=== PATIENT | female | born 1935 | race Caucasian/White ===

== ENCOUNTER → 2019-11-01 | Outpatient (CLI) | payer MEDICARE, OTHER ==
[~2019-11-01] MED LIST: ACETAMIN; ALBU3IS INH; ALBU8HFA2 INH; ALBU90OI INH; AMIO200 PO; AMLO5 PO; ATEN25 PO; AZIT250 PO; Antivert25 MG PO; BREO ELLIPTA 11 EACH INH; CALTRATE; CEFU50SU PO; CHOL10002 PO; DIGO.125 PO; FERR325 PO; FLUSAL5005 IH; FLUTICASONE P15.8 ML; FURO40 PO; FURO80 PO; GABA300 PO; LEVSOD75; LEVSOD75 PO; LEVSOD88 PO; MECL25 PO; METO100ER PO; METO50ER PO; OXYACE5T; OXYACE5T PO; OXYB5ER PO; OXYC10ER PO; OXYC80ER PO; OXYCODONE; OXYM.05NI; PANT40; PANT40 PO; PARO20; PARO20 PO; POTA10T PO; PRAM.5 PO; PRED10 PO; PREMROSE OIL; SIMV20 PO; SIMV40; SIMV40 PO; TRAZ100; VENL150ER PO; VERA240ER; WARF2 PO; WARF3 PO; WARF4 PO; XARELTO; [UNRECOGNIZED DRUG - OTHER]
[2019-11-01 16:32] LABS: Source, Urine Clean Catch
[2019-11-01 18:35] LABS: Blood, Urine Neg (Neg); Glucose Qualitative, Urine Neg (Neg); Ketones, Urine Neg (Neg); Leukocyte Esterase, Urine Neg (Neg); Nitrite, Urine Pos (Neg); Protein, Urine Neg (Neg); Urobilinogen, Urine 2+ (Normal)
[2019-11-01 18:56] LABS: Bilirubin, Urine 2+ (Neg)
[2019-11-01 19:10] LABS: Appearance, Urine Clear (Clear); Color, Urine Orange (P-Yellow)
[2019-11-01 19:12] LABS: Bacteria Few /hpf; Red Blood Cells, Urine Not Seen /hpf (0-2); Squamous Epithelial Cells Rare /hpf (Few); White Blood Cells, Urine Rare /hpf (0-5)
== END | disposition home or self-care (01) ==
LOC: OLS 16:31 → LAB SHORT 16:31 → LAB FUT 11-01 16:20
PROVIDERS: Internal Medicine
DX: R30.0 Dysuria (principal)
CPT/HCPCS: 81001

== ENCOUNTER 2020-01-24 13:06 | Inpatient (IN) | payer MEDICARE, OTHER ==
[~2020-01-24] VITALS: Ht 152.4 cm; Wt 82.1 kg
[~2020-01-24 13:06] MED LIST changes: -AMIO200 PO; +Amiodarone HCl200 MG PO; +EUTHYROX88 MCG PO; -LEVSOD88 PO; -WARF2 PO
[2020-01-24 13:56] LABS: BASOPHILS ABSOLUTE AUTO 0.03 K/mm3 (0.00-0.23); BASOPHILS PERCENT AUTO 0 % (0-2); EOSINOPHILS ABSOLUTE AUTO 0.18 K/mm3 (0.00-0.68); EOSINOPHILS PERCENT AUTO 2 % (0-6); Hematocrit 37.8 % (33.0-51.0); Hemoglobin 12.1 g/dL (11.5-16.0); IMMATURE GRAN ABSOLUTE AUTO 0.05 K/mm3 (0.00-0.10); IMMATURE GRAN PERCENT AUTO 1 % (0-1); LYMPHOCYTES ABSOLUTE AUTO 1.62 K/mm3 (0.84-5.20); LYMPHOCYTES PERCENT AUTO 22 % (21-46); MONOCYTES ABSOLUTE AUTO 0.69 K/mm3 (0.16-1.47); MONOCYTES PERCENT AUTO 9 % (4-13); Mean Corpuscular HGB 31.6 pg (26.0-34.0); Mean Corpuscular Volume 99 fL (80-100); Mean Platelet Volume 8.7 fL (9.1-12.4); NEUTROPHILS ABSOLUTE AUTO 4.98 K/mm3 (1.96-9.15); NEUTROPHILS PERCENT AUTO 66 % (41-73); Platelet Count 243 K/mm3 (150-400); RDW Standard Deviation 46.4 fL (35.1-46.3); Red Blood Cell Count 3.83 M/mm3 (3.80-5.20); White Blood Cell Count 7.55 K/mm3 (4.00-11.30)
[2020-01-24 14:19] LABS: International Normalized Ratio 2.39; Prothrombin Time Results 24.3 Sec (9.7-11.5)
[2020-01-24 14:28] LABS: Albumin, Blood 3.5 g/dL (3.4-5.0); Albumin/Globulin Ratio 0.9 (0.8-1.8); Bilirubin, Total 0.4 mg/dL (0.1-1.0); Bun/Creatinine Ratio 24.3 (12.0-20.0); Calcium, Blood 8.7 mg/dL (8.5-10.1); Creatinine, Blood 1.52 mg/dL (0.40-1.00); Globulin, Blood 3.7 g/dL (2.2-4.0); Potassium, Blood 4.4 mmol/L (3.5-5.5); Total Protein, Blood 7.2 g/dL (6.4-8.2)
[2020-01-24] MEDS ORDERED: Coumadin2 MG PO (14:46)
[2020-01-24] MEDS ORDERED: DULO60 PO (15:06)
[2020-01-24] MEDS ORDERED: TORSE20 PO (15:07)
[2020-01-24] MEDS ORDERED: FERSU300 PO (15:07)
[2020-01-24] MEDS ORDERED: Robaxin-750750 MG PO (15:08)
[2020-01-24] MEDS ORDERED: Percocet 5-3251 EACH PO (15:09)
[2020-01-24] MEDS ORDERED: Ropinirole HC0.25 MG PO (15:10)
[2020-01-24 16:23] LABS: Source, Urine Catheter
[2020-01-24 16:30] LABS: Bilirubin, Urine Neg (Neg); Blood, Urine 1+ (Neg); Glucose Qualitative, Urine Neg (Neg); Ketones, Urine 1+ (Neg); Leukocyte Esterase, Urine Neg (Neg); Nitrite, Urine Neg (Neg); Protein, Urine Neg (Neg); Specific Gravity, Urine 1.015 (1.003-1.022); Urobilinogen, Urine NORM (Normal)
[2020-01-24 16:37] LABS: Appearance, Urine Clear (Clear); Color, Urine Pale Yellow (P-Yellow)
[2020-01-24 16:39] LABS: Bacteria Rare /hpf; Red Blood Cells, Urine 0-2 /hpf (0-2); Squamous Epithelial Cells Rare /hpf (Few); White Blood Cells, Urine 0-2 /hpf (0-5)
--- NOTE | 2020-01-24 19:12 | NUR ---
PT ADMITTED FROM ED FOR LEFT FEMUR FX. PT A&O X4. GIVEN 0.2MG DILAUDID AND 5MG OXYCODONE PER EMAR. NO PLAN FOR IMMEDIATE SURGERY AT THIS TIME. GARZON CATHETER IN PLACE AND DRAINING CLEAR YELLOW URINE.
[2020-01-25 05:42] LABS: BASOPHILS PERCENT AUTO 0 % (0-2); EOSINOPHILS ABSOLUTE AUTO 0.01 K/mm3 (0.00-0.68); EOSINOPHILS PERCENT AUTO 0 % (0-6); Hematocrit 34.6 % (33.0-51.0); IMMATURE GRAN ABSOLUTE AUTO 0.05 K/mm3 (0.00-0.10); IMMATURE GRAN PERCENT AUTO 1 % (0-1); LYMPHOCYTES ABSOLUTE AUTO 1.85 K/mm3 (0.84-5.20); LYMPHOCYTES PERCENT AUTO 18 % (21-46); MONOCYTES ABSOLUTE AUTO 1.17 K/mm3 (0.16-1.47); MONOCYTES PERCENT AUTO 11 % (4-13); Mean Corpuscular HGB 31.2 pg (26.0-34.0); Mean Corpuscular HGB Conc 31.8 g/dL (31.5-36.5); Mean Corpuscular Volume 98 fL (80-100); Mean Platelet Volume 8.9 fL (9.1-12.4); NEUTROPHILS PERCENT AUTO 70 % (41-73); Platelet Count 276 K/mm3 (150-400); RDW Coefficient Variation 13.1 % (11.7-14.2); RDW Standard Deviation 46.5 fL (35.1-46.3); Red Blood Cell Count 3.53 M/mm3 (3.80-5.20); White Blood Cell Count 10.38 K/mm3 (4.00-11.30)
[2020-01-25 05:57] LABS: International Normalized Ratio 2.33; Prothrombin Time Results 23.8 Sec (9.7-11.5)
[2020-01-25 06:09] LABS: Albumin, Blood 3.3 g/dL (3.4-5.0); Bilirubin, Total 0.4 mg/dL (0.1-1.0); Bun/Creatinine Ratio 23.3 (12.0-20.0); Calcium, Blood 8.9 mg/dL (8.5-10.1); Creatinine, Blood 1.76 mg/dL (0.40-1.00); Globulin, Blood 3.4 g/dL (2.2-4.0); Potassium, Blood 4.7 mmol/L (3.5-5.5); Total Protein, Blood 6.7 g/dL (6.4-8.2)
--- NOTE | 2020-01-25 06:24 | NUR ---
patient stated that she slept most of the night. she is cooperative with care and helpful. her wakefield cath is draining around the catheter partially. her bed required a full change and was given a partial bath. She has been NPO since midnight just incase she was able to go to surgery today. her INR was 2.33 this morning. Her pain has been under moderate control. no acute changes
[2020-01-25 13:01] LABS: Source, Urine Catheter
[2020-01-25 13:12] LABS: Bilirubin, Urine Neg (Neg); Blood, Urine 4+ (Neg); Glucose Qualitative, Urine Neg (Neg); Ketones, Urine Neg (Neg); Leukocyte Esterase, Urine Neg (Neg); Nitrite, Urine Neg (Neg); Protein, Urine Neg (Neg); Urobilinogen, Urine NORM (Normal)
[2020-01-25 13:15] LABS: Appearance, Urine Clear (Clear); Color, Urine Yellow (P-Yellow)
[2020-01-25 13:21] LABS: Bacteria Few /hpf; Mucus Light (0-Heavy); Squamous Epithelial Cells Rare /hpf (Few); White Blood Cells, Urine 0-2 /hpf (0-5)
--- NOTE | 2020-01-25 15:25 | NUR ---
HR 120 PER DIRECTOR WATER AND WASTE SERVICES. CARDIZEM PO ADMIN PER ORDER. CONT TO MONITOR.
--- NOTE | 2020-01-25 18:11 | NUR ---
PATIENT STATES PAIN TOLERABLE WITH PO AND IV PAIN MED. CIRC CHECKS TO LLE WNL. APPETITE GOOD. CT DONE. NPO AFTER 2400 FOR PLAN TO OC TO OR. FAMILY IN TO SEE.
--- NOTE | 2020-01-26 02:47 | NUR ---
DISCUSSED PT'S NPO STATUS AND NEED FOR IVF WITH DR. BRICENO. PER , PT IS TO BE SL W/OUT IVF.
[2020-01-26 05:35] LABS: BASOPHILS ABSOLUTE AUTO 0.02 K/mm3 (0.00-0.23); BASOPHILS PERCENT AUTO 0 % (0-2); EOSINOPHILS ABSOLUTE AUTO 0.03 K/mm3 (0.00-0.68); EOSINOPHILS PERCENT AUTO 0 % (0-6); Hematocrit 26.4 % (33.0-51.0); Hemoglobin 8.4 g/dL (11.5-16.0); IMMATURE GRAN ABSOLUTE AUTO 0.06 K/mm3 (0.00-0.10); IMMATURE GRAN PERCENT AUTO 1 % (0-1); LYMPHOCYTES ABSOLUTE AUTO 1.94 K/mm3 (0.84-5.20); LYMPHOCYTES PERCENT AUTO 21 % (21-46); MONOCYTES PERCENT AUTO 18 % (4-13); Mean Corpuscular HGB 31.1 pg (26.0-34.0); Mean Corpuscular HGB Conc 31.8 g/dL (31.5-36.5); Mean Corpuscular Volume 98 fL (80-100); Mean Platelet Volume 8.6 fL (9.1-12.4); NEUTROPHILS ABSOLUTE AUTO 5.72 K/mm3 (1.96-9.15); NEUTROPHILS PERCENT AUTO 60 % (41-73); Platelet Count 197 K/mm3 (150-400); RDW Coefficient Variation 12.9 % (11.7-14.2); RDW Standard Deviation 46.3 fL (35.1-46.3); White Blood Cell Count 9.47 K/mm3 (4.00-11.30)
--- NOTE | 2020-01-26 05:36 | NUR ---
SHIFT SUMMARY PATIENT A/OX4. IS IN AFIB AND TACHYCARDIC; HR NOW IN LOW 100'S AFTER 2 DOSES IV LOPRESSOR. HOSPITALIST AWARE, NO NEW ORDERS AT THIS TIME. BP STABLE. ON 1L NC WHILE SLEEPING WITH SPO2 AT 95%. APPEARS TO HAVE RESTED WELL T/O SHIFT. GARZON IN PLACE AND DRAINING CLEAR YELLOW URINE. MEDICATED ONCE FOR PAIN. HAS BEEN NPO SINCE MIDNIGHT. TODAY'S INR IS 1.07 AND PT 11.4. WILL CONT TO MONITOR AND GIVE REPORT TO ONCOMING RN.
[2020-01-26 05:50] LABS: International Normalized Ratio 1.07; Prothrombin Time Results 11.4 Sec (9.7-11.5)
[2020-01-26 05:57] LABS: Albumin, Blood 2.9 g/dL (3.4-5.0); Anion Gap 6 mmol/L (6-16); Blood Urea Nitrogen 45 mg/dL (8-24); Bun/Creatinine Ratio 24.1 (12.0-20.0); CO2, Blood 29 mmol/L (21-32); Calcium, Blood 8.5 mg/dL (8.5-10.1); Chloride, Blood 101 mmol/L (98-108); Creatinine, Blood 1.87 mg/dL (0.40-1.00); Glomerular Filtration Rate 27 (60-); Glucose, Blood 156 mg/dL (70-99); Magnesium, Blood 2.4 mg/dL (1.6-2.4); Phosphorus, Blood 4.2 mg/dL (2.5-4.9); Potassium, Blood 4.6 mmol/L (3.5-5.5); Sodium, Blood 136 mmol/L (136-145); Troponin I <0.015 ng/mL (0.000-0.040)
--- NOTE | 2020-01-26 15:31 | NUR ---
5LB JAMES'S TRACTION APPLIED TO LLE, TOLERATED WELL.
--- NOTE | 2020-01-26 19:23 | NUR ---
SHIFT SUMMARY PT A&OX4, TELE AFIB @ 106 (LOWER 100'S), 30MG CARDIZEM GIVEN X1 FOR HR >100. BUCKS TRAC APPLIED TODAY. PAIN MANAGED WITH 10 MG PERCOCET; 0.5 MG DILAUDID X1. TISHA PO, DENIES N&V. CBGS CNI. SL. GARZON PATENT & DRAINING YELLOW URINE. PLAN IS FOR PT TO BE NPO AT MIDNIGHT FOR POSSIBLE SURGERY TOMORROW. REPORT GIVEN TO SAVI AGUILAR.
--- NOTE | 2020-01-27 04:16 | NUR ---
SHIFT SUMMARY AA0X3, VSS. PT RESTING IN BED, BUCKS TRACTION IN PLACE. PT C/O PAIN UPON WAKING UP IN THE AM, DENIED PAIN OTHERWISE. SATS ABOVE 92% DURING SHIFT. HR IN AFIB BETWEEN 90-100 PER PATIENT SCHEDULING MANAGER. NPO SINCE MIDNIGHT. GARZON PATENT AND DRAINING.
[2020-01-27 06:49] LABS: BASOPHILS ABSOLUTE AUTO 0.01 K/mm3 (0.00-0.23); BASOPHILS PERCENT AUTO 0 % (0-2); EOSINOPHILS ABSOLUTE AUTO 0.08 K/mm3 (0.00-0.68); EOSINOPHILS PERCENT AUTO 1 % (0-6); Hematocrit 22.9 % (33.0-51.0); Hemoglobin 7.4 g/dL (11.5-16.0); IMMATURE GRAN ABSOLUTE AUTO 0.04 K/mm3 (0.00-0.10); IMMATURE GRAN PERCENT AUTO 1 % (0-1); LYMPHOCYTES ABSOLUTE AUTO 1.41 K/mm3 (0.84-5.20); LYMPHOCYTES PERCENT AUTO 17 % (21-46); MONOCYTES ABSOLUTE AUTO 1.37 K/mm3 (0.16-1.47); MONOCYTES PERCENT AUTO 17 % (4-13); Mean Corpuscular HGB 31.5 pg (26.0-34.0); Mean Corpuscular HGB Conc 32.3 g/dL (31.5-36.5); Mean Corpuscular Volume 97 fL (80-100); Mean Platelet Volume 9.5 fL (9.1-12.4); NEUTROPHILS ABSOLUTE AUTO 5.39 K/mm3 (1.96-9.15); NEUTROPHILS PERCENT AUTO 65 % (41-73); Platelet Count 188 K/mm3 (150-400); RDW Coefficient Variation 12.7 % (11.7-14.2); RDW Standard Deviation 44.8 fL (35.1-46.3); Red Blood Cell Count 2.35 M/mm3 (3.80-5.20)
[2020-01-27 07:03] LABS: International Normalized Ratio 0.95; Prothrombin Time Results 10.2 Sec (9.7-11.5)
[2020-01-27 07:12] LABS: Albumin, Blood 2.6 g/dL (3.4-5.0); Anion Gap 4 mmol/L (6-16); Blood Urea Nitrogen 44 mg/dL (8-24); Bun/Creatinine Ratio 23.7 (12.0-20.0); CO2, Blood 29 mmol/L (21-32); Calcium, Blood 8.4 mg/dL (8.5-10.1); Chloride, Blood 101 mmol/L (98-108); Creatinine, Blood 1.86 mg/dL (0.40-1.00); Glomerular Filtration Rate 27 (60-); Glucose, Blood 155 mg/dL (70-99); Magnesium, Blood 2.4 mg/dL (1.6-2.4); Phosphorus, Blood 3.9 mg/dL (2.5-4.9); Potassium, Blood 4.2 mmol/L (3.5-5.5); Sodium, Blood 134 mmol/L (136-145)
--- NOTE | 2020-01-27 17:43 | NUR ---
SHIFT SUMMARY PAIN HAS BEEN MANAGED WITH PO PAIN MEDICATION. PT HAS HAD 2 UNITS OF PRBC TODAY, SHE HAS TOLERATED WELL. BP HAS IMPROVED THIS SHIFT. PT HAS BEEN MILDLY TACHYCARDIC THIS SHIFT. PLAN FOR SURGERY TOMORROW. VSS. WILL MONITOR UNTIL REPORT TO ONCOMING RN.
[2020-01-28 05:59] LABS: BASOPHILS ABSOLUTE AUTO 0.01 K/mm3 (0.00-0.23); BASOPHILS PERCENT AUTO 0 % (0-2); EOSINOPHILS ABSOLUTE AUTO 0.15 K/mm3 (0.00-0.68); EOSINOPHILS PERCENT AUTO 2 % (0-6); Hematocrit 26.4 % (33.0-51.0); Hemoglobin 8.8 g/dL (11.5-16.0); IMMATURE GRAN ABSOLUTE AUTO 0.04 K/mm3 (0.00-0.10); IMMATURE GRAN PERCENT AUTO 1 % (0-1); LYMPHOCYTES ABSOLUTE AUTO 1.54 K/mm3 (0.84-5.20); LYMPHOCYTES PERCENT AUTO 22 % (21-46); MONOCYTES PERCENT AUTO 16 % (4-13); Mean Corpuscular HGB 31.7 pg (26.0-34.0); Mean Corpuscular HGB Conc 33.3 g/dL (31.5-36.5); Mean Corpuscular Volume 95 fL (80-100); Mean Platelet Volume 9.4 fL (9.1-12.4); NEUTROPHILS ABSOLUTE AUTO 4.02 K/mm3 (1.96-9.15); NEUTROPHILS PERCENT AUTO 59 % (41-73); Platelet Count 174 K/mm3 (150-400); RDW Coefficient Variation 13.6 % (11.7-14.2); RDW Standard Deviation 47.3 fL (35.1-46.3); Red Blood Cell Count 2.78 M/mm3 (3.80-5.20); White Blood Cell Count 6.86 K/mm3 (4.00-11.30)
[2020-01-28 06:13] LABS: Albumin, Blood 2.5 g/dL (3.4-5.0); Anion Gap 5 mmol/L (6-16); Blood Urea Nitrogen 41 mg/dL (8-24); Bun/Creatinine Ratio 25.6 (12.0-20.0); CO2, Blood 29 mmol/L (21-32); Calcium, Blood 8.4 mg/dL (8.5-10.1); Chloride, Blood 105 mmol/L (98-108); Glomerular Filtration Rate 32 (60-); Glucose, Blood 129 mg/dL (70-99); Magnesium, Blood 2.5 mg/dL (1.6-2.4); Phosphorus, Blood 3.1 mg/dL (2.5-4.9); Potassium, Blood 4.1 mmol/L (3.5-5.5); Sodium, Blood 139 mmol/L (136-145)
[2020-01-28 06:16] LABS: International Normalized Ratio 0.94; Prothrombin Time Results 10.1 Sec (9.7-11.5)
--- NOTE | 2020-01-28 06:38 | NUR ---
SHIFT SUMMARY HAS RESTED WELL THIS SHIFT. GOOD INTAKE AND OUTPUT, HAS BEEN NPO SINCE [place]. TELE SHOWS AFIB IN THE 80'S. GARZON CATH AND BUCKS TRACTION ARE STILL IN PLACE. DENIES FURTHER NEEDS OR WANTS AT THIS TIME. SAFETY MEASURES IN PLACE. WILL GIVE HAND OFF TO ONCOMING SHIFT USING SBAR DURING BEDSIDE REPORT.
--- NOTE | 2020-01-28 10:46 | NUR ---
DR WALKER RECENTLY REPORTED THAT PT MAY EAT, DOES NOT PLAN OF PT HAVING PROCEDURE TODAY R/T HER HEART RATE, DISCUSSED TELE'S REPORT FROM [place] TODAY. FAMILY NOTIFIED.
--- NOTE | 2020-01-28 14:59 | NUR ---
DR BONDS HERE TO SEE PT RECENTLY, SEE ORDERS.
--- NOTE | 2020-01-28 16:50 | NUR ---
SHIFT SUMMARY PT DID NOT HAVE PROCEDURE TODAY. PT EATING AND DRINKING WELL. PT HAS GARZON IN PLACE, DRAINING WELL. PT BEEN ASSISTED WITH ADL'S. DR SÁNCHEZ IN TO SEE PT TODAY. DISCUSSED PT'S STATUS INCLUDING PT REPORTING NOT HAVING BM FOR SEVERAL DAYS. PT BEEN MED PRN FOR PAIN. FAMILY IN/OUT OF ROOM TODAY.
[2020-01-29 06:15] LABS: BASOPHILS ABSOLUTE AUTO 0.01 K/mm3 (0.00-0.23); BASOPHILS PERCENT AUTO 0 % (0-2); EOSINOPHILS ABSOLUTE AUTO 0.14 K/mm3 (0.00-0.68); EOSINOPHILS PERCENT AUTO 2 % (0-6); Hematocrit 28.4 % (33.0-51.0); Hemoglobin 9.3 g/dL (11.5-16.0); IMMATURE GRAN ABSOLUTE AUTO 0.03 K/mm3 (0.00-0.10); IMMATURE GRAN PERCENT AUTO 1 % (0-1); LYMPHOCYTES ABSOLUTE AUTO 1.22 K/mm3 (0.84-5.20); LYMPHOCYTES PERCENT AUTO 20 % (21-46); MONOCYTES ABSOLUTE AUTO 0.99 K/mm3 (0.16-1.47); MONOCYTES PERCENT AUTO 16 % (4-13); Mean Corpuscular HGB 31.8 pg (26.0-34.0); Mean Corpuscular HGB Conc 32.7 g/dL (31.5-36.5); Mean Corpuscular Volume 97 fL (80-100); Mean Platelet Volume 8.9 fL (9.1-12.4); NEUTROPHILS ABSOLUTE AUTO 3.78 K/mm3 (1.96-9.15); NEUTROPHILS PERCENT AUTO 61 % (41-73); Platelet Count 206 K/mm3 (150-400); RDW Coefficient Variation 13.6 % (11.7-14.2); RDW Standard Deviation 48.3 fL (35.1-46.3); Red Blood Cell Count 2.92 M/mm3 (3.80-5.20); White Blood Cell Count 6.17 K/mm3 (4.00-11.30)
--- NOTE | 2020-01-29 06:31 | NUR ---
ALERT AND ORIENTED. ORAL PAIN MEDICATION PER EMAR. PATIENT HAD INCREASED PAIN AT THE BEGINNING OF THE SHIFT, LG ICE BAG APPLIED TO HER LT THIGH. PATIENT SLEPT FOR 6-8 HOURS. SHE WOKE THIS AM FEELING VERY RESTED. sHE ALSO STATED THAT THE ICE PACK REALLY HELPED HER PAIN. LT LE IN BUCKS TRACTION, 10LBS. READJUSTED THIS AT 2300. PATIENT HAS BEEN NPO EXCEPT FOR SIPS OF WATER ENOUGH TO SWALLOW PILLS SINCE MIDNIGHT. NO ACUTE CHANGES.
[2020-01-29 06:37] LABS: Bun/Creatinine Ratio 25.3 (12.0-20.0); Calcium, Blood 8.6 mg/dL (8.5-10.1); Creatinine, Blood 1.5 mg/dL (0.40-1.00); Potassium, Blood 4.1 mmol/L (3.5-5.5)
--- NOTE | 2020-01-29 08:19 | NUR ---
DR WALKER HERE RECENTLY TO SEE PT, FAMILY PRESENT.
--- NOTE | 2020-01-29 11:16 | NUR ---
PT OUT OF ROOM FOR PROCEDURE WITH OTHER RN'S IN OWN BED.
--- NOTE | 2020-01-29 12:41 | NUR ---
RETURNED TO ROOM FROM DAY SURGERY.
--- NOTE | 2020-01-29 14:37 | NUR ---
FAMILY CONCERN. DR NOTIFIED OF PT REQ FOR CARDIOLOGY CONSULT. DR Guillermina ELLISON DECLINES AT THIS TIME AND REPORTS WILL DISCUSS WITH FAMILY.
--- NOTE | 2020-01-29 14:39 | NUR ---
DIGOXIN IV INFUSED WHILE PT ON TELE. PT TOLERATED WELL, SEE VS. TELE REPORTS PT HR IN 70'S TO 80'S AT THIS TIME.
--- NOTE | 2020-01-29 16:42 | NUR ---
SHIFT SUMMARY PT DID NOT HAVE PROCEDURE TODAY R/T HR. DR Guillermina ELLISON BEEN TO SEE PT. PT FAMILY IN/OUT OF ROOM. PT EATING AND DRINKING AFTER NOT HAVING PROCEDURE WITHOUT DIFFICULTY. JAMES'S TRACTION BACK IN PLACE. PT HR BEEN BETTER AFTER HAVING DIGOXIN IV TODAY. PT BEEN ASSISTED WITH ADL'S PRN. PT BEEN REPOSITIONED MULT TIMES TODAY.
--- NOTE | 2020-01-30 04:33 | NUR ---
SHIFT SUMMARY PT IS A/O X4. BUCKS TRACTION HAS BEEN IN PLACE PER ORDERS. PT HAS BEEN REPOSITIONED TOLERATED, HOWEVER SHE HAS NOT BEEN ABLE TO TOLERATE MUCH MOVEMENT D/T PAIN WITH MOVEMENT IN HER LEG. PAIN MANAGED WITH PO PAIN MEDS PER ORDERS. DIGOXIN WAS GIVEN PER ORDER THIS SHIFT; PT TOLERATED WELL. HAS BEEN NPO PER ORDERS SINCE MIDNIGHT FOR POSSIBLE SURGERY TODAY. GARZON IN PLACE, OFF FLOOR, STAT LOCK IN PLACE. ASSISTED WITH ADLS PRN.
[2020-01-30 05:45] LABS: Hematocrit 28.8 % (33.0-51.0); Hemoglobin 9.2 g/dL (11.5-16.0); Mean Corpuscular HGB 31.1 pg (26.0-34.0); Mean Corpuscular HGB Conc 31.9 g/dL (31.5-36.5); Mean Corpuscular Volume 97 fL (80-100); Mean Platelet Volume 8.9 fL (9.1-12.4); Platelet Count 246 K/mm3 (150-400); RDW Coefficient Variation 13.2 % (11.7-14.2); RDW Standard Deviation 46.4 fL (35.1-46.3); Red Blood Cell Count 2.96 M/mm3 (3.80-5.20)
[2020-01-30 06:10] LABS: Anion Gap 4 mmol/L (6-16); Blood Urea Nitrogen 36 mg/dL (8-24); Bun/Creatinine Ratio 25.9 (12.0-20.0); CO2, Blood 32 mmol/L (21-32); Calcium, Blood 8.9 mg/dL (8.5-10.1); Chloride, Blood 102 mmol/L (98-108); Creatinine, Blood 1.39 mg/dL (0.40-1.00); Glomerular Filtration Rate 38 (60-); Glucose, Blood 114 mg/dL (70-99); Potassium, Blood 3.8 mmol/L (3.5-5.5); Sodium, Blood 138 mmol/L (136-145)
[2020-01-30 06:21] LABS: Digoxin (Lanoxin) 1.71 ug/mL (0.80-2.00)
--- NOTE | 2020-01-30 12:30 | NUR ---
PT TO PRE OP IN HOSPITAL BED
--- NOTE | 2020-01-30 17:00 | NUR ---
POST OP PT ARRIVES POST OP, ALERT AND ORIENTED. TELE REAPPLIED, AFIB IN 80'S. L HIP STILL EDEMADOUS BUT BULKY DRSG WNL. NO DRAINAGE NOTED. PPP. TAKING SIPS OF WATER WIHTOUT ISSUES.
[2020-01-31 04:09] LABS: BASOPHILS ABSOLUTE AUTO 0.01 K/mm3 (0.00-0.23); BASOPHILS PERCENT AUTO 0 % (0-2); EOSINOPHILS ABSOLUTE AUTO 0.05 K/mm3 (0.00-0.68); EOSINOPHILS PERCENT AUTO 1 % (0-6); Hematocrit 27.4 % (33.0-51.0); Hemoglobin 8.8 g/dL (11.5-16.0); IMMATURE GRAN ABSOLUTE AUTO 0.05 K/mm3 (0.00-0.10); IMMATURE GRAN PERCENT AUTO 1 % (0-1); LYMPHOCYTES ABSOLUTE AUTO 1.23 K/mm3 (0.84-5.20); LYMPHOCYTES PERCENT AUTO 13 % (21-46); MONOCYTES PERCENT AUTO 14 % (4-13); Mean Corpuscular HGB 31.2 pg (26.0-34.0); Mean Corpuscular HGB Conc 32.1 g/dL (31.5-36.5); Mean Corpuscular Volume 97 fL (80-100); Mean Platelet Volume 8.7 fL (9.1-12.4); NEUTROPHILS ABSOLUTE AUTO 6.96 K/mm3 (1.96-9.15); NEUTROPHILS PERCENT AUTO 73 % (41-73); Platelet Count 270 K/mm3 (150-400); Red Blood Cell Count 2.82 M/mm3 (3.80-5.20)
[2020-01-31 04:32] LABS: Albumin, Blood 2.3 g/dL (3.4-5.0); Anion Gap 4 mmol/L (6-16); Blood Urea Nitrogen 33 mg/dL (8-24); Bun/Creatinine Ratio 25.2 (12.0-20.0); CO2, Blood 31 mmol/L (21-32); Calcium, Blood 8.5 mg/dL (8.5-10.1); Chloride, Blood 102 mmol/L (98-108); Creatinine, Blood 1.31 mg/dL (0.40-1.00); Glomerular Filtration Rate 41 (60-); Glucose, Blood 136 mg/dL (70-99); Phosphorus, Blood 2.7 mg/dL (2.5-4.9); Sodium, Blood 137 mmol/L (136-145)
--- NOTE | 2020-01-31 07:24 | NUR ---
SUMMARY TOLERATING PO MEDS. GARZON PATENT OF CLEAR YELLOW.SLEPT QUIETLY WITH NO DISTRESS. RESP SHALLOW, BUT APPEAR EVEN AND UNLABORED.DAY RN AGREES TO FOLLOW UP ON COAG.
[2020-01-31 10:41] LABS: International Normalized Ratio 0.95; Prothrombin Time Results 10.2 Sec (9.7-11.5)
--- NOTE | 2020-01-31 16:00 | NUR ---
SHIFT SUMMARY PT IS DOING WELL POST OP BUT IS VERY DECONDITIONED. PT DID PUT FORTH GOOD EFFORT WHEN WORKING WITH BOTH PT/OT, ALTHOUGH WAS ONLY ABLE TO DANGLE BOTH TIMES. GARZON WITH GOOD OUTPUT AND PLAN TO DC POD 2. EATING AND DRINKING WELL. PAIN WELL MANAGED W/ 2 PERCOCET. 1 DOES NOT ADEQUATELY MANAGE IT. ORTHO MD IN TO CHANGE DRSG @ 2132.
--- NOTE | 2020-01-31 16:46 | NUR ---
REPORT RECIEVED FROM JEFF GARZA. ASSUMED PT CARE AT THIS TIME
--- NOTE | 2020-01-31 18:29 | NUR ---
NO CHANGE SINCE RECEIVED REPORT, WILL PASS REPORT TO MARBELLA RN
[2020-02-01 04:59] LABS: BASOPHILS ABSOLUTE AUTO 0.01 K/mm3 (0.00-0.23); BASOPHILS PERCENT AUTO 0 % (0-2); EOSINOPHILS ABSOLUTE AUTO 0.06 K/mm3 (0.00-0.68); EOSINOPHILS PERCENT AUTO 1 % (0-6); Hematocrit 25.5 % (33.0-51.0); Hemoglobin 8.2 g/dL (11.5-16.0); IMMATURE GRAN ABSOLUTE AUTO 0.05 K/mm3 (0.00-0.10); IMMATURE GRAN PERCENT AUTO 1 % (0-1); LYMPHOCYTES PERCENT AUTO 15 % (21-46); MONOCYTES ABSOLUTE AUTO 1.43 K/mm3 (0.16-1.47); MONOCYTES PERCENT AUTO 16 % (4-13); Mean Corpuscular HGB 31.1 pg (26.0-34.0); Mean Corpuscular HGB Conc 32.2 g/dL (31.5-36.5); Mean Corpuscular Volume 97 fL (80-100); NEUTROPHILS ABSOLUTE AUTO 5.94 K/mm3 (1.96-9.15); NEUTROPHILS PERCENT AUTO 68 % (41-73); Platelet Count 299 K/mm3 (150-400); RDW Coefficient Variation 12.9 % (11.7-14.2); RDW Standard Deviation 45.1 fL (35.1-46.3); Red Blood Cell Count 2.64 M/mm3 (3.80-5.20); White Blood Cell Count 8.79 K/mm3 (4.00-11.30)
[2020-02-01 05:18] LABS: International Normalized Ratio 0.96; Prothrombin Time Results 10.3 Sec (9.7-11.5)
[2020-02-01 05:32] LABS: Albumin, Blood 2.2 g/dL (3.4-5.0); Anion Gap 6 mmol/L (6-16); Blood Urea Nitrogen 40 mg/dL (8-24); Bun/Creatinine Ratio 26.5 (12.0-20.0); CO2, Blood 30 mmol/L (21-32); Calcium, Blood 8.4 mg/dL (8.5-10.1); Chloride, Blood 100 mmol/L (98-108); Creatinine, Blood 1.51 mg/dL (0.40-1.00); Glomerular Filtration Rate 35 (60-); Glucose, Blood 177 mg/dL (70-99); Phosphorus, Blood 2.7 mg/dL (2.5-4.9); Sodium, Blood 136 mmol/L (136-145)
--- NOTE | 2020-02-01 05:44 | NUR ---
SUMMARY PT INCREASED CONFUSION TONIGHT ? R/T PAIN MEDS. NO BM NOTED IN SEVERAL DAYS. HAD MIRALAX TODAY. RECEIVING COLACE. WILL GIVE SENOKOT.
--- NOTE | 2020-02-01 13:24 | NUR ---
BLOOD TRANSFUSION COMPLETE AT THIS TIME. TOLERATED WELL. NO ACUTE CHANGE, VSS.
--- NOTE | 2020-02-01 14:23 | NUR ---
RECENTLY BEEN GIVEN REPORT FROM OTHER RN TERESA AND MONAE ASSUMING CARE OF PT AT THIS TIME.
[2020-02-02 04:47] LABS: BASOPHILS ABSOLUTE AUTO 0.02 K/mm3 (0.00-0.23); BASOPHILS PERCENT AUTO 0 % (0-2); EOSINOPHILS PERCENT AUTO 4 % (0-6); Hematocrit 26.8 % (33.0-51.0); Hemoglobin 8.6 g/dL (11.5-16.0); IMMATURE GRAN ABSOLUTE AUTO 0.06 K/mm3 (0.00-0.10); IMMATURE GRAN PERCENT AUTO 1 % (0-1); LYMPHOCYTES PERCENT AUTO 21 % (21-46); MONOCYTES ABSOLUTE AUTO 1.14 K/mm3 (0.16-1.47); MONOCYTES PERCENT AUTO 15 % (4-13); Mean Corpuscular HGB 30.6 pg (26.0-34.0); Mean Corpuscular HGB Conc 32.1 g/dL (31.5-36.5); Mean Corpuscular Volume 95 fL (80-100); Mean Platelet Volume 8.8 fL (9.1-12.4); NEUTROPHILS ABSOLUTE AUTO 4.37 K/mm3 (1.96-9.15); NEUTROPHILS PERCENT AUTO 58 % (41-73); Platelet Count 277 K/mm3 (150-400); RDW Coefficient Variation 14.8 % (11.7-14.2); RDW Standard Deviation 51.9 fL (35.1-46.3); Red Blood Cell Count 2.81 M/mm3 (3.80-5.20); White Blood Cell Count 7.49 K/mm3 (4.00-11.30)
[2020-02-02 05:00] LABS: International Normalized Ratio 0.98; Prothrombin Time Results 10.5 Sec (9.7-11.5)
[2020-02-02 05:06] LABS: Calcium, Blood 8.6 mg/dL (8.5-10.1); Creatinine, Blood 1.61 mg/dL (0.40-1.00); Potassium, Blood 3.8 mmol/L (3.5-5.5)
--- NOTE | 2020-02-02 05:18 | NUR ---
SHIFT SUMMARY: DIANNE IS POD3 FOR A LEFT HIP FEMORAL RODDING. A&O X4. SHE HAS NOT HAD ANY EPISODES OF CONFUSION THIS SHIFT. DRESSINGS X 2 C/D&I. SHE HAS BEEN CONTINENT/INCONTINENT, SOMETIMES CALLING TO USE THE BEDPAN. TOLERATING PO INTAKE WELL. SHE IS ABLE TO MAKE HER NEEDS KNOWN, USING HER CALL LIGHT APPROPRIATELY. SHE REPORTS ADEQUATE PAIN CONTROL WITH 1 TABLET OF NORCO. SHE HAS RESTED COMFORTABLY FOR THE MAJORITY OF THE SHIFT. SHE IS LYING IN BED WITH HER CALL LIGHT IN REACH. WILL REPORT TO DAY SHIFT RN.
--- NOTE | 2020-02-02 09:58 | NUR ---
DR ELLISON HERE TO SEE PT, DISCUSSED PT'S STATUS INCLUDING BOWEL CARE.
--- NOTE | 2020-02-02 13:35 | NUR ---
DISCHARGE: PT EATING AND DRINKING, VOIDING, HAD BM'S TODAY. PT TO [facility] BY [facility], FAMILY AWARE OF TRANSFER. SPRING INTERN ASSISTED WITH DISCHARGE. PAPERWORK, SCRIPT AND BELONGINGS SENT WITH PT. DRESSINGS FOR HIP AND PROTECTIVE DRESSING SENT FOR PT PT WAS NOTICED TO HAVE VERY SMALL/TINY SPLIT AT TOP OF TAILBONE THAT IS DIFFICULT TO SEE IN PHOTO THAT WAS TAKEN PRIOR TO DISCHARGE, SEE PHOTO. PT HAD NO SORES TO HEELS THAT WERE NOTED. PT BEEN RECENTLY MED FOR PAIN PRIOR TO TRANSFER. BIJAN GIVEN REPORT AT [facility] INCLUDING MEDICATIONS GIVEN TODAY AND THAT PT HAS NOT HAD HER COUMADIN TODAY.
== END 2020-02-02 13:25 | disposition home or self-care (01) | DRG 481 ==
LOC: ER 13:06 → SURS 16:08 → ERHOLD 16:08 → SURS 17:35
PROVIDERS: Emergency Medicine; Family Medicine; Internal Medicine Gastroenterology; Orthopaedic Surgery; Pharmacist; ADMIT Family Medicine
PROC: 30233N1 Transfusion of Nonautologous Red Blood Cells into Peripheral Vein, Percutaneous Approach (ICD-10-PCS; 2020-01-30)
PROC: 0QS736Z Reposition Left Upper Femur with Intramedullary Internal Fixation Device, Percutaneous Approach (ICD-10-PCS; principal; 2020-01-30 14:45)
DX: S72.142A Displaced intertrochanteric fracture of left femur, initial encounter for closed fracture (principal); F11.20 Opioid dependence, uncomplicated; I13.0 Hypertensive heart and chronic kidney disease with heart failure and stage 1 through stage 4 chronic kidney disease, or unspecified chronic kidney disease; I48.20 Chronic atrial fibrillation, unspecified; D62 Acute posthemorrhagic anemia; J44.9 Chronic obstructive pulmonary disease, unspecified; E11.22 Type 2 diabetes mellitus with diabetic chronic kidney disease; N18.3 Chronic kidney disease, stage 3 (moderate); I50.9 Heart failure, unspecified; Z85.3 Personal history of malignant neoplasm of breast; Z96.652 Presence of left artificial knee joint; D63.1 Anemia in chronic kidney disease; Z79.01 Long term (current) use of anticoagulants; G89.29 Other chronic pain; W19.XXXA Unspecified fall, initial encounter; Z66 Do not resuscitate; M54.9 Dorsalgia, unspecified; M17.11 Unilateral primary osteoarthritis, right knee; G47.33 Obstructive sleep apnea (adult) (pediatric); E78.5 Hyperlipidemia, unspecified; E66.9 Obesity, unspecified; E03.9 Hypothyroidism, unspecified; G25.81 Restless legs syndrome; Z68.35 Body mass index [BMI] 35.0-35.9, adult
CPT/HCPCS: 36415; 36430; 51702; 71045; 73502; 73552; 73700; 76377; 80048; 80053; 80069; 80162; 81001; 82947; 83735; 83880; 84484; 85018; 85025; 85027; 85610; 86850; 86900; 86901; 86923; 93005; 93010; 94060; 94640; 94726; 94729; 94760; 94762; 96374-59; 96375-59; 97110; 97162; 97167; 97530; 99285-25; A9270; A9270-GY; C1713; J0690; J1160; J1170; J2370; J2405; J2704; J2765; J3010; J7030; J7120; P9016

== ENCOUNTER → 2020-02-27 | Outpatient (CLI) | payer MEDICARE, OTHER ==
[~2020-02-27] MED LIST changes: +Coumadin2 MG PO; +DULO60 PO; +FERSU300 PO; +Percocet 5-3251 EACH PO; +Robaxin-750750 MG PO; +Ropinirole HC0.25 MG PO; +TORSE20 PO
[2020-02-27 16:00] LABS: International Normalized Ratio 2.82; Prothrombin Time Results 28.5 Sec (9.7-11.5)
== END ==
LOC: LAB HH 14:49
PROVIDERS: Internal Medicine
DX: Z79.01 Long term (current) use of anticoagulants (principal); Z51.81 Encounter for therapeutic drug level monitoring; I48.20 Chronic atrial fibrillation, unspecified
CPT/HCPCS: 85610

== ENCOUNTER → 2020-03-12 | Outpatient (CLI) | payer MEDICARE, OTHER ==
[2020-03-12 16:18] LABS: International Normalized Ratio 3.41
== END | disposition home or self-care (01) ==
LOC: LAB HH 12:30
PROVIDERS: Internal Medicine
DX: Z79.01 Long term (current) use of anticoagulants (principal); Z51.81 Encounter for therapeutic drug level monitoring
CPT/HCPCS: 85610

== ENCOUNTER → 2020-03-19 | Outpatient (CLI) | payer MEDICARE, OTHER ==
[2020-03-19 16:23] LABS: International Normalized Ratio 3.18; Prothrombin Time Results 31.9 Sec (9.7-11.5)
== END | disposition home or self-care (01) ==
LOC: LAB HH 14:21
PROVIDERS: Internal Medicine
DX: Z79.01 Long term (current) use of anticoagulants (principal); Z51.81 Encounter for therapeutic drug level monitoring
CPT/HCPCS: 85610

== ENCOUNTER → 2020-03-27 | Outpatient (CLI) | payer MEDICARE, OTHER ==
[2020-03-27 12:38] LABS: International Normalized Ratio 1.51; Prothrombin Time Results 15.8 Sec (9.7-11.5)
== END | disposition home or self-care (01) ==
LOC: LAB HH 10:25
PROVIDERS: Internal Medicine
DX: Z79.01 Long term (current) use of anticoagulants (principal); Z51.81 Encounter for therapeutic drug level monitoring
CPT/HCPCS: 85610